=== PATIENT | female | born 1960 | race Caucasian/White ===

== ENCOUNTER 2019-09-26 17:22 | Emergency (ER) | payer BC, OTHER ==
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
[2019-09-26] MEDS ORDERED: Acetaminophen TAB* 325 MG PO ONE (18:43)
[2019-09-26 20:28] VITALS: BP 154/86
== END 2019-09-26 20:31 | disposition home or self-care (01) ==
LOC: UCCORT 17:22
DX: M54.5 Low back pain (principal); M51.36 Other intervertebral disc degeneration, lumbar region; K57.30 Diverticulosis of large intestine without perforation or abscess without bleeding; R53.83 Other fatigue; F41.9 Anxiety disorder, unspecified; Z79.899 Other long term (current) drug therapy
CPT/HCPCS: 74176; 81003; 99212; A9270-GY; G0463